=== PATIENT | male | born 1945 | race Caucasian/White ===

== ENCOUNTER → 2020-06-08 15:28 | Outpatient (CLI) | payer MEDICARE, SELFPAY ==
--- NOTE | ~2020-06-08 | XR_ITS ---
EXAMINATION: XR hip RT 2V w AP pelvis EXAM DATE: 06/08/2020 16:03 INDICATION: M25.551 - Pain in right hip, no known recent injury. TECHNIQUE: Right hip frontal, 'frog leg' projections for interpretation. Frontal projection pelvis. There is no prior study for comparison. FINDINGS: There is moderate symmetric bilateral hip primary osteoarthritis. No evidence of hip avascu lar necrosis. There are no acute fractures or dislocations identified. There is no subcutaneous gas. The soft tissue is unremarkable. There are no radiopaque foreign bodies. IMPRESSION: Moderate symmetric bilateral hip osteoarthritis. Reviewed, dictated and finalized at location A.
== END ==
PROVIDERS: PCP Family Medicine; Visit Provider Family Medicine
DX: M16.0 Bilateral primary osteoarthritis of hip (principal)
CPT/HCPCS: 73502

== ENCOUNTER 2020-12-03 22:52 | Emergency (ER) | payer MEDICARE, SELFPAY ==
--- NOTE | ~2020-12-03 | CT_ITS ---
EXAMINATION: CT lumbar spine wo con DATE: 12/04/2020 01:36 INDICATION: Low back pain TECHNIQUE: Computed tomography (CT) of the lumbar spine was performed without intravenous contrast. T he dose-length product (DLP) was 1177.86 mGy-cm. Iterative reconstruction was used. COMPARISON: None FINDINGS: There are 2 mm of retrolisthesis of L5 on S1. Vertebral body alignment is otherwise maintai enio. The vertebral body heights are normal. There is no fracture. There is vacuum disc phenomena and moderate loss of disc space height at L4-5. There is mild facet osteoarthritis at multiple levels. Po sterior disc bulges are also seen. There is a horseshoe kidney. IMPRESSION: 1. Mild lumbar spondylosis without acute findings. Reviewed, dictated and finalized at location A.
[2020-12-03 23:00] VITALS: BP 130/100; PULSE 64; RESP 18; TEMP 36.2; O2SAT 98
--- NOTE | 2020-12-03 23:52 | PC.NURSE ---
Patient ambulating in the waiting room with no difficulty and a steady gait.
[2020-12-04 01:15] VITALS: BP 126/87; PULSE 68; RESP 18; O2SAT 98
[2020-12-04] MEDS: KETOROLAC 15 MG/ML VIAL (*BKC) IV PUSH (02:16)
[2020-12-04] MEDS: methylPREDNISolone SOD SUCC 125 MG VIAL IV PUSH (02:17)
--- NOTE | 2020-12-04 03:04 | ED.GENADULT ---
HPI - General Adult General Chief complaint: Extremity Problem,Nontraumatic Stated complaint: right leg pain Time Seen by Provider: 12/04/20 00:58 History of Present Illness HPI narrative: Patient 75-year-old gentleman who presents the emergency department with chief complaint of back pain and pain radiating down his right leg. The patient reports he saw his primary care physician was given a Medrol Dosepak and was doing better until this evening when his pain started to worsen. The patient states that the pain shoots down his right leg reports that he has a little bit of numbness and tingling in his leg but denies any focal neurological deficit. The patient denies saddle anesthesia denies urinary retention or urinary incontinence denies bowel incontinence Related Data Home Medications Medication Instructions Recorded Confirmed donepezil 10 mg tablet 10 mg PO QPM tablet 05/28/19 12/01/20 Allergies Allergy/AdvReac Type Severity Reaction Status Date / Time SEASONAL ALLERGIES Allergy Mild RUNNY Uncoded 12/03/20 23:03 NOSE; ITCHY EYES Review of Systems Review of Systems: A 10 system review of systems was completed on the patient and is negative except for what is stated in the HPI. Nursing and ancillary documentation was reviewed. PMFSH Past Medical History Medical History BPH NOS w ur obs/LUTS Surgical History Surgical History History of pacemaker Family History Family History Grandparent Cerebrovascular accident Diabetes mellitus Father Family history of pancreatic cancer Sibling Family history of primary malignant neoplasm of liver Patient's sister is in good health Other Family history of cardiovascular disease Family history of malignant neoplasm Social History Social History Smoking packs per day: 1 Smoking cigarettes per day: 20.0 Years smoked: 10 Smoking pack-years: 10.00 Smoking status: Never smoker Tobacco type: cigarettes Second hand tobacco smoke exposure: No Smoking end date: 03/19/73 Alcohol intake: current Drinks per week: 3 Substance use: never Substance use type: does not use Gender identity (if verbalized by the patient): Male Exam Narrative: GENERAL: Well-appearing, well-nourished, and in no acute distress. HEAD: Normocephalic, atraumatic. EYES: PERRLA and EOMI. ENT: Nares clear, no rhinorrhea or epistaxis. Mucous membranes moist. NECK: Supple. CHEST: Clear to auscultation. No respiratory distress. HEART: Regular rate and rhythm. No murmur heard. Normal peripheral pulses. ABDOMEN: Soft, nontender, nondistended, normal active bowel sounds. EXTREMITIES: Normal range of motion. No edema. SKIN: Warm, dry, no rash. NEURO: No focal deficits. Alert and oriented x3. PSYCH: Normal mood and affect. Course Vital Signs Vital signs: Vital Signs Temperature 36.2 C L 12/03/20 23:00 Pulse Rate 64 12/03/20 23:00 Respiratory Rate 18 12/03/20 23:00 Blood Pressure 130/100 H 12/03/20 23:00 Pulse Oximetry 98 12/03/20 23:00 Temperature 36.2 C L 12/03/20 23:00 Pulse Rate 68 12/04/20 01:15 Respiratory Rate 18 12/04/20 01:15 Blood Pressure 126/87 12/04/20 01:15 Pulse Oximetry 98 12/04/20 01:15 Medical Decision Making Vital Signs Vital Signs: Vital Signs Temperature 36.2 C L 12/03/20 23:00 Pulse Rate 64 12/03/20 23:00 Respiratory Rate 18 12/03/20 23:00 Blood Pressure 130/100 H 12/03/20 23:00 Pulse Oximetry 98 12/03/20 23:00 Temperature 36.2 C L 12/03/20 23:00 Pulse Rate 68 12/04/20 01:15 Respiratory Rate 18 12/04/20 01:15 Blood Pressure 126/87 12/04/20 01:15 Pulse Oximetry 98 12/04/20 01:15 Discharge Plan Discharge Clin
[2020-12-04 04:37] VITALS: BP 124/83; PULSE 71; RESP 18; O2SAT 98
== END 2020-12-04 04:41 | disposition home or self-care (01) ==
PROVIDERS: Emergency Provider Emergency Medicine; PCP Family Medicine
DX: M54.16 Radiculopathy, lumbar region (principal); Z87.891 Personal history of nicotine dependence; Z95.0 Presence of cardiac pacemaker
CPT/HCPCS: 72131; 96374; 96375; 99284; J1885; J2930

== ENCOUNTER → 2021-09-28 12:43 | Outpatient (CLI) | payer MEDICARE, SELFPAY ==
--- NOTE | ~2021-09-28 | CT_ITS ---
EXAMINATION: CTA brain carotid DATE: 09/28/2021 13:56 INDICATION: Cerebrovascular accident. TECHNIQUE: Computed tomographic angiography (CTA) of the head was performed without and with 100 mL O mnipaque-350 intravenous contrast. CTA of the neck was performed with intravenous contrast. Automated exposure control and iterative reconstruction technique were employed. The dose-length product was 1 608.94 mGy-cm. Maximum intensity projection and volume rendered 3D-reconstructions were created by jarrell persaud technologist on a separate workstation. COMPARISON: Head CT 11/28/2018 FINDINGS: HEAD CTA: There is an old infarct involving the right basal ganglia and right internal capsule. There is no intracranial hemorrhage, acute infarction, or abnormal intracranial mass lesion. The ventricle s are normal in size. There is mild mucosal thickening in the ethmoid sinuses. There are likely gomes es of left ocular lens replacement surgery. The mastoid air cells are normal. There is a severe steno sis of the vertebral arteries or basilar artery or posterior cerebral arteries. The posterior communi cating arteries are normal. There is no significant stenosis of the intracranial internal carotid art eries or anterior or middle cerebral arteries. Anterior communicating artery is normal. There is no a neurysm. NECK CTA: There is mild scarring at the lung apices. There are no pathologically enlarged lymph nodes . There is no significant stenosis of the vertebral arteries. There is plaque in the proximal interna l carotid arteries. There is 5% stenosis of the proximal right internal carotid artery relative to no rmal distal artery lumen diameter (NASCET criteria). There is 0% stenosis of the proximal left international guest coordinator al carotid artery relative to normal distal artery lumen diameter. There is severe cervical spondylos is. IMPRESSION: 1. 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 2. 5% stenosis of the proximal right internal carotid artery relative to normal distal artery lumen d iameter (NASCET criteria). 3. 0% stenosis of the proximal left internal carotid artery relative to normal distal artery lumen di ameter. Reviewed, dictated and finalized at location A. IMPRESSION: 1. 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 2. 5% stenosis of the proximal right internal carotid artery relative to normal distal artery lumen diameter (NASCET criteria). 3. 0% stenosis of the proximal left internal carotid artery relative to normal distal artery lumen diameter.
[2021-09-29 07:30] LABS: Estimated Glomerular Filt Rate 49
== END ==
PROVIDERS: PCP Family Medicine
DX: I63.9 Cerebral infarction, unspecified (principal); I65.21 Occlusion and stenosis of right carotid artery
CPT/HCPCS: 70496; 70498; Q9967

== ENCOUNTER → 2021-12-21 12:06 | Outpatient (CLI) | payer MEDICARE, SELFPAY ==
--- NOTE | ~2021-12-21 | XR_ITS ---
EXAM: XR knee RT 2V DATE: 12/21/2021 12:32 HISTORY: M25.561 - Pain in right knee . COMPARISON: None available. FINDINGS: Normal mineralization. No fracture or dislocation. No lytic or blastic lesion. Moderate me dial joint space narrowing. Mild tricompartmental osteophytosis. Quadriceps and patellar enthesopathy . No erosion or periosteal change. Soft tissues within normal limits. IMPRESSION: Tricompartment osteoarthritis, moderate in the medial compartment. Reviewed, dictated and finalized at location K.
== END ==
PROVIDERS: PCP Family Medicine; Visit Provider Family Medicine
DX: M17.11 Unilateral primary osteoarthritis, right knee (principal)
CPT/HCPCS: 73560

== ENCOUNTER 2023-07-03 08:08 | Outpatient (CLI) | payer MEDICARE, SELFPAY ==
--- NOTE | ~2023-07-03 | US_ITS ---
EXAMINATION: US aorta [facility] DATE: 07/03/2023 08:27 INDICATION: Abdominal aortic aneurysm screening TECHNIQUE: Grayscale, color Doppler, and pulsed Doppler images of the aorta and common iliac arteries were obtained. COMPARISON: None. FINDINGS: The proximal aorta measures 2.4 cm AP. The mid aorta measures 2.4 cm. The distal aorta measures 2.1 c m. The right common iliac artery measures 1.2 cm. The left common iliac artery measures 1.1 cm. IMPRESSION: 1. Normal caliber abdominal aorta Reviewed, dictated and finalized at location A.
== END 2023-07-03 08:09 ==
LOC: GOSHIMG 08:09
PROVIDERS: PCP Family Medicine; Visit Provider Family Medicine
DX: Z13.6 Encounter for screening for cardiovascular disorders (principal)
CPT/HCPCS: 76706

== ENCOUNTER 2023-07-31 09:30 | Emergency (ER) | payer MEDICARE, SELFPAY ==
--- NOTE | ~2023-07-31 | CT_ITS ---
EXAMINATION: CT brain wo con DATE: 07/31/2023 10:48 INDICATION: Left-sided headache. TECHNIQUE: Computed tomography (CT) of the head was performed without intravenous contrast. The mA wa s adjusted according to patient size. Iterative reconstruction technique was employed. The dose-lengt h product was 681.00 mGy-cm. COMPARISON: Head CT 09/28/2021 FINDINGS: There is an old infarct involving the right basal ganglia and anterior limb right internal capsule. There are scattered areas of low attenuation in the cerebral white matter, which is within n ormal limits for the patient's age. There is no intracranial hemorrhage, acute infarction, or abnorma l intracranial mass lesion. The ventricles are normal in size. There is mild mucosal thickening in th e paranasal sinuses. There are likely changes of left ocular lens replacement surgery. The mastoid ai r cells are normal. There is asymmetric atrophy of right parotid gland. IMPRESSION: 1. 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 Reviewed, dictated and finalized at location A.
[2023-07-31 09:40] VITALS: BP 150/71; PULSE 73; RESP 18; TEMP 36.6; O2SAT 97
[2023-07-31 09:47] VITALS: BP 142/88; PULSE 71; RESP 16; O2SAT 97
--- NOTE | 2023-07-31 10:16 | ED.EYEPROB ---
HPI - Eye Problem General Chief complaint: Eye Problems Stated complaint: left eye pain Time Seen by Provider: 07/31/23 09:49 Source: patient Mode of arrival: ambulatory Limitations: no limitations History of Present Illness HPI Narrative: Patient is a 77 y/o male who presents to the ED with c/o L sided headache. Patient reports he woke up this morning with pain in his left-sided head/periorbital region and behind his left eye. He has not taken anything for the pain today, states pain is improved currently. Denies any vision changes, blurry vision, vision loss, double vision. Denies drainage from eye. Denies foreign body sensation in eye. Denies history of migraines. Denies focal weakness or numbness. Denies dizziness, lightheadedness. 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 Related Data Home Medications Medication Instructions Recorded Confirmed donepezil 10 mg tablet 10 mg PO QPM 05/28/19 06/20/23 Allergies Allergy/AdvReac Type Severity Reaction Status Date / Time SEASONAL ALLERGIES Allergy Mild RUNNY Uncoded 06/20/23 11:13 NOSE; ITCHY EYES Review of Systems Review of Systems: CONSTITUTIONAL: Denies fever, chills, or sweats. ENT: See HPI. NEUROLOGIC: See HPI. All systems reviewed & are unremarkable except as noted in HPI and below PMFSH Past Medical History Medical History (Updated 07/31/23 @ 12:34 by Mercedez Gross PA-C) BPH NOS w ur obs/LUTS Former smoker Obesity Surgical History Surgical History (Updated 07/31/23 @ 10:40 by Mercedez Gross PA-C) H/O eye surgery History of pacemaker Family History Family History Grandparent Cerebrovascular accident Diabetes mellitus Father Family history of pancreatic cancer Sibling Family history of primary malignant neoplasm of liver Patient's sister is in good health Other Family history of cardiovascular disease Family history of malignant neoplasm Social History Social History Smoking packs per day: 1 Smoking cigarettes per day: 20.0 Years smoked: 10 Smoking pack-years: 10.00 Smoking status: Former smoker Tobacco type: cigarettes Second hand tobacco smoke exposure: No Smoking end date: 03/19/73 Alcohol intake: current Drinks per week: 3 Substance use: never Substance use type: does not use Living arrangements: with family Occupation/Education: retired Gender identity (if verbalized by the patient): Male Sexual Orientation (if Verbalized by the Patient): Straight or Heterosexual Exam Narrative: GENERAL: Elderly, well-nourished, non-toxic, in no acute distress. HEAD: Normocephalic, atraumatic. EYES: PERRL/EOMI, conjunctivae clear bilaterally. No nystagmus. No drainage. No periorbital edema/erythema. NECK: Supple. No meningeal signs. RESPIRATORY: Airway patent, respirations nonlabored. Clear to auscultation bilaterally, no rales, rhonchi, wheezing. CARDIOVASCULAR: Regular rate and rhythm without murmurs, rubs, or gallops. Peripheral pulses 2+ and equal bilaterally. MUSCULOSKELETAL: Moves all extremities. No gross deformities. SKIN: Warm, dry, normal color. No rashes. NEURO: A&O X3. Speech clear. Follows commands. CN II-XII intact. Sensation grossly intact. Steady gait. No ataxic movements. Strength 5/5 in upper and lower extremities bilaterally. No pronator drift. Equal lead caster strength bilaterally. PSYCHIATRIC: Appropriate mood and affect. Normal interaction. Course Vital Signs Vital signs: Vital Signs Temperature 98 F 07/31/23 09:40 Pulse Rate 73 07/31/23 09:40 Respiratory Rate 18 07/31/23 09:40 Blood Pressure 150/71 H 07/31/23 09:40 Pulse Oximetry 97 07/31/23 09:40 Oxygen Delivery Room Air 07/31/23 09:40 Temperature 98 F 07/31/23 09:40 Pulse Rate 78 07/31/23 1
[2023-07-31 10:30] VITALS: BP 140/72; PULSE 73; RESP 18; O2SAT 98
[2023-07-31] MEDS: ACETAMINOPHEN 500 MG TABLET 1000 MG PO (10:30)
[2023-07-31 11:02] VITALS: BP 141/78; PULSE 66; RESP 16; O2SAT 98
[2023-07-31 12:01] VITALS: BP 136/73; PULSE 78; RESP 16; O2SAT 100
== END 2023-07-31 12:39 | disposition home or self-care (01) ==
PROVIDERS: Emergency Provider Physician Assistant; PCP Family Medicine
DX: H57.12 Ocular pain, left eye (principal); R51.9 Headache, unspecified; Z87.891 Personal history of nicotine dependence
CPT/HCPCS: 70450; 99284; A9270